=== PATIENT | female | born 1985 | race Caucasian/White ===

== ENCOUNTER 2019-11-30 15:45 | Emergency (ER) | payer OTHER, SELFPAY ==
[2019-11-30 16:43] VITALS: BP 150/86; PULSE 76; RESP 20; TEMP 37.9; O2SAT 100
--- NOTE | 2019-11-30 16:57 | ED.URI ---
HPI - URI/Sore Throat General Chief Complaint: Upper Respiratory Infection Stated Complaint: Fever/chills/Cough Time Seen by Provider: 11/30/19 17:20 Source: patient and RN notes reviewed Mode of arrival: ambulatory Limitations: no limitations History of Present Illness HPI Narrative: 34-year-old female presents with concern for fever, chills, cough, nasal congestion, rhinorrhea that started yesterday. Reports taking several [id number] medications with no relief MD elicited complaint: cough Related Data Allergies Allergy/AdvReac Type Severity Reaction Status Date / Time clarithromycin Allergy Unknown Unverified 04/30/19 11:31 Review of Systems Review of Systems: Narrative: CONSTITUTIONAL: Reports malaise, chills, sweats, or fever. EYES: Denies visual changes, redness, or discharge. ENT: Reports rhinorrhea, congestion, otalgia and sore throat. CARDIOVASCULAR: Denies chest pain, palpitations, or edema. RESPIRATORY: Reports cough. Denies dyspnea. GASTROINTESTINAL: Denies abdominal pain, nausea, vomiting, diarrhea SKIN: Denies rash or itching. MUSCULOSKELETAL: Reports myalgia. NEUROLOGIC: Denies headache. All systems reviewed & are unremarkable except as noted in HPI and below PMFSH Comments At time of signature, agree with nursing past medical, surgical, social and family history. There is no relevant family history pertinent to the presenting complaint Exam Narrative: Exam Narrative: GENERAL: Well-appearing, well-nourished, and in no acute distress. HEAD: Normocephalic EYES: PERRLA, conjunctivae clear ENT: Nares clear, turbinates edematous and erythematous, clear discharge. Mucous membranes moist. TM pearly quinn with dull light reflex bilaterally; no tragal tenderness. Oropharynx not erythematous without lesions. Tonsils not enlarged and without exudate, no drooling, no hoarseness, no trismus. NECK: Supple. No lymphadenopathy CHEST: Clear to auscultation, breath sounds equal. No wheezing, rhonchi, rales, or stridor. No respiratory distress, speaks in full sentences. HEART: Regular rate and rhythm. No murmur heard. Normal peripheral pulses. SKIN: Warm, dry, no rash. NEURO: Alert and oriented x3. PSYCH: Normal mood and affect Course Course Emergency Course: Patient is aware of diagnosis, understands and agrees to treatment plan. Anticipatory guidance given. Patient agrees to follow-up as directed and is aware of reasons to seek care at the emergency department. Portions of this record may have been created with voice recognition software Vital Signs Vital signs: Vital Signs Temperature 100.3 F H 11/30/19 16:43 Pulse Rate 76 11/30/19 16:43 Respiratory Rate 20 11/30/19 16:43 Blood Pressure 150/86 H 11/30/19 16:43 Pulse Oximetry 100 11/30/19 16:43 Temperature 100.3 F H 11/30/19 16:43 Pulse Rate 76 11/30/19 16:43 Respiratory Rate 20 11/30/19 16:43 Blood Pressure 150/86 H 11/30/19 16:43 Pulse Oximetry 100 11/30/19 16:43 Reviewed. Patient has been instructed to follow up with her primary care provider within the next week regarding her elevated blood pressure today. MDM - URI/Sore Throat MDM Narrative Medical decision making narrative: Differential diagnosis considered: Strep pharyngitis, allergic rhinitis, upper respiratory tract infection, sinusitis, rhinosinusitis, nasopharyngitis. viral pharyngitis, otitis media, otitis externa, pneumonia, bronchitis, viral cough syndrome, viral syndrome, and influenza. Exam findings show no acute concerns or changes; patient is non-toxic appearing and is in no distress. Patient is appropriate for outpatient treatment and follow-up. Lab Data Attestation: I reviewed the patient's lab results. Labs: Influenza A Screen Positive Reference Range: Negative Influenza B Screen Negative Reference Range: Negative Critical Care Time Critical Care Time Critical Care Time: No Discharge Plan Discharge Clinical Im
== END 2019-11-30 17:38 | disposition home or self-care (01) ==
PROVIDERS: Emergency Provider Nurse Practitioner
DX: J10.1 Influenza due to other identified influenza virus with other respiratory manifestations (principal)
CPT/HCPCS: 87804; 99213; G0463

== ENCOUNTER 2020-09-14 20:05 | Inpatient (IN) | payer OTHER, SELFPAY ==
[2020-09-14 20:08] VITALS: BP 148/71; PULSE 57; RESP 18; TEMP 36.8; O2SAT 100
[2020-09-14 20:26] LABS: Basophils Absolute Auto 0.1 K/mm3 (0.0-0.1); Basophils Percent Auto 0.6 % (0.2-1.2); Eosinophils Absolute Auto 0.3 K/mm3 (0-0.3); Eosinophils Percent Auto 2.8 % (0-4.4); Hematocrit 36.8 % (37.0-47.0); Hemoglobin 12.6 g/dL (12.0-15.0); Immature Granulocyte Absolute 0.01 K/mm3 (0.00-0.031); Immature Granulocyte Percent A 0.1 % (0-0.5); Lymphocytes Absolute Auto 3.44 K/mm3 (0.9-3.2); Lymphocytes Percent Auto 38.7 % (18.3-44.2); Mean Corpuscular HGB Conc 34.2 g/dl (32-36); Mean Corpuscular Hemoglobin 32.4 pg (26-34); Mean Corpuscular Volume 94.6 fl (80-100); Mean Platelet Volume 11.7 fl (7.4-10.4); Monocytes Absolute Auto 0.7 K/mm3 (0.1-0.6); Monocytes Percent Auto 7.7 % (2.6-8.5); Neutrophils Absolute Auto 4.5 K/mm3 (1.3-6.7); Neutrophils Percent Auto 50.1 % (45.5-73.1); Platelet Count Result 239 k/mm3 (150-375); Red Blood Count 3.89 M/mm3 (4.2-5.4); White Blood Count 8.9 K/mm3 (4.5-10.0)
[2020-09-14 20:38] LABS: Alanine Aminotransferase 50 U/L (4-35); Albumin Level 3.9 g/dL (3.5-5.1); Alkaline Phosphatase 77 U/L (38-126); Anion Gap 8 mmol/L (8-16); Aspartate Amino Transferase 63 U/L (14-36); Bilirubin,Total 0.3 mg/dL (0.2-1.3); Blood Urea Nitrogen 12 mg/dL (7-17); Calcium 8.9 mg/dL (8.4-10.2); Carbon Dioxide 26 mmol/L (22-30); Chloride 106 mmol/L (98-107); Estimated CRCL calculation 76 ml/min; Estimated Glomerular Filt Rate > 60; Glucose 107 mg/dL (65-105); Lipase 183 U/L (23-300); Potassium 3.2 mmol/L (3.4-5.0); Sodium 140 mmol/L (137-145)
[2020-09-14] MEDS: MORPHINE SULFATE (*CRX) 4 MG/ML INJ IV PUSH ×2 (20:45→21:18)
[2020-09-14] MEDS: ONDANSETRON INJ 4 MG/2 ML VIAL IV PUSH (20:46)
[2020-09-14 20:49] VITALS: BP 130/94; PULSE 64; RESP 18; O2SAT 100
--- NOTE | 2020-09-14 20:50 | ED.ABDPAIN ---
HPI - Abdominal Pain General Chief Complaint: Abdominal Pain Stated Complaint: Gallbladder Time Seen by Provider: 09/14/20 20:07 History of Present Illness HPI narrative: Patient is a 34-year-old female who presents ER with right upper quadrant abdominal pain. Sudden onset an hour and a half ago. Has history of gallstones and is scheduled to have her gallbladder removed by Dr. Restrepo on 09/29/2020. No fevers or chills or sweats. No vomiting. Pain is particularly more severe than typical so she came in for evaluation. No improvement with Tylenol. Related Data Home Medications Medication Instructions Recorded Confirmed ibuprofen 200 mg capsule 200 mg PO Q6H PRN 04/09/20 09/14/20 Allergies Allergy/AdvReac Type Severity Reaction Status Date / Time clarithromycin Allergy Unknown Unknown Verified 09/09/20 13:52 Review of Systems Review of Systems: All systems reviewed & are unremarkable except as noted in HPI and below Constitutional: Constitutional: Denies chills, Denies fever(s) and Denies weakness ENT: Denies nasal congestion and Denies sore throat Cardiovascular: Cardiovascular: Denies chest pain and Denies radiating jaw, neck or arm pain Respiratory: Respiratory: Denies cough and Denies dyspnea Gastrointestinal: Gastrointestinal: Reports abdominal pain, Denies diarrhea, Reports nausea and Denies vomiting PMFSH Past Medical History Medical History Aneurysm Kawasaki disease No pertinent past medical history Pyoderma gangrenosum Surgical History Surgical History Bulan teeth extracted Family History Family History Mother Diabetes mellitus Acute myocardial infarction Thrombus Father Diabetes mellitus Hypertension Social History Social History Smoking status: Never smoker Alcohol intake: current Drinks per week: 2 Substance use: never Substance use type: does not use Additional occupation/education comments: Pharmacist Gender identity (if verbalized by the patient): Female Spiritual care concerns: No Exam Narrative: Exam Narrative: GENERAL: Well-appearing, well-nourished, and in no acute distress. HEAD: Normocephalic, atraumatic. CHEST: Clear to auscultation. No respiratory distress. HEART: Regular rate and rhythm. Normal peripheral pulses. ABDOMEN: Soft, moderate tenderness palpation right upper quadrant, nondistended. EXTREMITIES: Normal range of motion. No edema. SKIN: Warm, dry, no rash. NEURO: Alert and oriented x3. PSYCH: Normal mood and affect. Course Course Emergency Course: Patient still with mild pain after 2 doses of morphine. Discussed with general surgery who recommends admission for observation. Patient received Zosyn. Vital Signs Vital signs: Vital Signs Temperature 98.2 F 09/14/20 20:08 Pulse Rate 57 L 09/14/20 20:08 Respiratory Rate 18 09/14/20 20:08 Blood Pressure 148/71 H 09/14/20 20:08 Pulse Oximetry 100 09/14/20 20:08 Temperature 97.2 F L 09/15/20 06:00 Pulse Rate 52 L 09/15/20 06:00 Respiratory Rate 18 09/15/20 06:00 Blood Pressure 104/72 09/15/20 06:00 Pulse Oximetry 100 09/15/20 06:00 MDM - Abdominal Pain Lab Data Result diagrams: 09/14/20 20:20 09/14/20 20:20 Labs: Lab Results 09/14/20 09/14/20 09/14/20 Range/Units 20:20 20:20 20:43 WBC 8.9 (4.5-10.0) K/mm3 RBC 3.89 L (4.2-5.4) M/mm3 Hgb 12.6 (12.0-15.0) g/dL Hct 36.8 L (37.0-47.0) % MCV 94.6 (80-100) fl MCH 32.4 (26-34) pg MCHC 34.2 (32-36) g/dl RDW 12.0 (11.5-14.5) % Plt Count 239 (150-375) k/mm3 MPV 11.7 H (7.4-10.4) fl Immature Gran % (Auto) 0.1 (0-0.5) % Neut % (Auto) 50.1 (45.5-73.1) % Lymph % (Auto) 38.7 (18.3-44.2)
[2020-09-14 20:52] LABS: Add Urine Microscopic? YES; Appearance Urine Clear (Clear); Bilirubin Urine Negative (Negative); Blood Urine Negative (Negative); Color Urine Yellow (Yellow); Glucose Urine UA Negative (Negative); Ketones Urine Negative (Negative); Leukocyte Esterase Ur Negative LEU/UL (Negative); Mucus Urine Moderate /lpf; Nitrate Urine Negative (Negative); Protein Urine 1+ mg/dL (Negative); RBC Urine 0-2 /hpf (0-2); Squamous Epithelial Cell Urine Occasional /hpf (Few); Urobilinogen Urine Negative mg/dL (<2.0); WBC Urine 0-3 /hpf
[2020-09-14 21:29] VITALS: BP 118/62; PULSE 47; RESP 18; O2SAT 100
[2020-09-14 22:12] VITALS: BP 114/57; PULSE 66; RESP 18; O2SAT 100
[2020-09-14 23:19] VITALS: BP 102/69; PULSE 53; RESP 18; O2SAT 99
--- NOTE | 2020-09-14 23:38 | ADMGEN ---
This patient, Nani Gonzales, was admitted to Medical Room 258-. Patient/family oriented to hospital policies and general routines including ID bracelet, bed and alarms, visiting hours, pain management, procedures, bathroom and other care routines, personal items, smoking policy, room service/diet, and visiting hours. Information on how to activate the Rapid Response Team has been discussed. Patient/Family are encouraged to report perceived risks to care and to ask questions if they do not understand what they are told or what they should do.
[2020-09-15] MEDS: SODIUM CHLORIDE 0.9% IV 1,000 ML 125 ML IV CONT ×2 (00:03→08:40)
[2020-09-15 00:04] VITALS: BP 114/59; PULSE 50; RESP 16; TEMP 36.3; O2SAT 100; BMI 33.3
[2020-09-15 06:00] VITALS: BP 104/72; PULSE 52; RESP 18; TEMP 36.2; O2SAT 100
--- NOTE | 2020-09-15 09:50 | PM.IMHP ---
H&P: HPI History of Present Illness Date/Time: 09/15/20 09:50 Chief complaint: ruq abdominal pain, cholelithiasis Narrative: Nani Gonzales is a 34 year old female who was recently seen in the office by Dr. Restrepo for cholelithiasis. She had a right upper quadrant abdominal ultrasound on 09/04/2020 that showed diffuse cholelithiasis with a positive Rudd's sign. After evaluation as an outpatient, she was scheduled for a laparoscopic cholecystectomy by Dr. Restrepo on 09/29/2020. She reportedly has been following a very strict low-fat diet as directed. She has had intermittent abdominal pain even with a low-fat diet since seen in the office, but unchanged until last night. Last night for dinner she ate steamed brown rice and grilled chicken. She then developed a sudden onset of right upper quadrant abdominal pain that was more severe than her typical episodes of pain. The pain radiated to her mid back. She denies any alleviating factors. She then called our on-call exchange due to the unrelenting pain and eventually decided to go to the emergency department for further evaluation. Labs in the ER showed a white blood cell count of 8,900, potassium 3.2, AST 63, ALT 50, total bilirubin and alk-phos normal, and a normal lipase. Our service was consulted by the ED physician and the patient was admitted to our service. She is now being seen on the medical floor. She reports that her abdominal pain improved after 2 doses of the IV morphine. She reports that her abdominal pain prior to admission has been aggravated even by a low-fat diet. She states she has been eating very little at home due to the fear of the recurrent abdominal pain. She denies abdominal pain at this time. Denies fever, chills, or bloating. Reports associated loose stools. No other complaints at this time. Review of Systems Review of Systems: All systems reviewed & are unremarkable except as noted in HPI and below Constitutional: Constitutional: Reports as per HPI, Denies chills, Denies excessive sweating, Denies fatigue, Denies fever(s), Denies headache(s) and Denies weakness Eyes: Eyes: Reports no additional eye complaints, Denies change in vision and Denies eye pain ENT: Reports system reviewed and no additional complaints, except as documented, Denies dysphagia, Denies dizziness, Denies dry mouth, Denies headache(s), Denies hearing loss and Denies mouth pain Cardiovascular: Cardiovascular: Reports no additional cardiovascular complaints, Denies chest pain, Denies pedal edema, Denies radiating jaw, neck or arm pain, Denies dyspnea and Denies dyspnea on exertion Respiratory: Respiratory: Reports no additional respiratory complaints, Denies cough, Denies dyspnea, Denies dyspnea on exertion and Denies wheezing Gastrointestinal: Gastrointestinal: Reports as per HPI, Reports abdominal pain, Denies hematochezia, Denies tenesmus, Denies change in stool character, Denies dysphagia, Denies diarrhea, Reports loose stools, Denies nausea and Denies vomiting Genitourinary: Genitourinary: Reports as per HPI Musculoskeletal: Musculoskeletal: Reports no additional musculoskeletal complaints, Denies abnormal gait, Denies deformity, Denies joint swelling, Denies numbness and Denies tingling Integumentary/Breasts: Skin/Breast: Reports system reviewed and no additional complaints, except as docu, Denies new lesions, Denies rash, Denies wounds and Denies jaundice Neurologic: Reports system reviewed and no additional complaints, except as documented, Denies abnormal gait, Denies dizziness, Denies headache(s), Denies numbness, Denies tingling and Denies weakness Psychiatric: Psychiatric: Reports no additional psychiatric complaints, Denies anxiety and Denies depression Endocrine: Endocrine: Reports no additional endocrine complaints, Denies cold intolerance, Denies excessive sweating, Denies fatigue and Denies heat intolerance PMFSH Past Medical History Medical History (Reviewed 09/15/20 @ 10:41 by
[2020-09-15] MEDS: POTASSIUM CHLORIDE 20 MEQ PACKET (FOR LIQUID) 40 MEQ PO (11:16)
[2020-09-15 12:39] LABS: Alanine Aminotransferase 86 U/L (4-35); Albumin Level 3.2 g/dL (3.5-5.1); Alkaline Phosphatase 63 U/L (38-126); Aspartate Amino Transferase 73 U/L (14-36); Bilirubin,Total 0.4 mg/dL (0.2-1.3)
[2020-09-15 14:00] VITALS: BP 107/63; PULSE 76; RESP 16; TEMP 36.7; O2SAT 100
[2020-09-15] MEDS: SODIUM CHLORIDE 0.9% IV 1,000 ML 100 ML IV CONT (17:54)
[2020-09-15] MEDS: MORPHINE SULFATE (*CRX) 2 MG/ML INJ IV PUSH (21:14)
[2020-09-15 22:00] VITALS: BP 136/78; PULSE 60; RESP 21; TEMP 37.1; O2SAT 100
[2020-09-16] VITALS (14 sets, daily range): BP systolic 110–136; BP diastolic 54–76; PULSE 39–67; RESP 11–21; TEMP 36.1–37.1; O2SAT 97–100
[2020-09-16 05:44] LABS: Basophils Percent Auto 0.7 % (0.2-1.2); Eosinophils Absolute Auto 0.3 K/mm3 (0-0.3); Eosinophils Percent Auto 4.3 % (0-4.4); Hematocrit 31.2 % (37.0-47.0); Hemoglobin 10.2 g/dL (12.0-15.0); Immature Granulocyte Absolute 0.02 K/mm3 (0.00-0.031); Immature Granulocyte Percent A 0.3 % (0-0.5); Lymphocytes Absolute Auto 2.68 K/mm3 (0.9-3.2); Lymphocytes Percent Auto 44.4 % (18.3-44.2); Mean Corpuscular HGB Conc 32.7 g/dl (32-36); Mean Corpuscular Hemoglobin 31.9 pg (26-34); Mean Corpuscular Volume 97.5 fl (80-100); Mean Platelet Volume 12.2 fl (7.4-10.4); Monocytes Absolute Auto 0.5 K/mm3 (0.1-0.6); Monocytes Percent Auto 8.1 % (2.6-8.5); Neutrophils Absolute Auto 2.6 K/mm3 (1.3-6.7); Neutrophils Percent Auto 42.2 % (45.5-73.1); Platelet Count Result 178 k/mm3 (150-375); Red Cell Distribution Width 12.5 % (11.5-14.5)
--- NOTE | 2020-09-16 06:08 | WPDANESEPP ---
Anes - Eval Pre Procedure Procedure: Operation Date: 09/16/20 15:30 Proposed Procedures p Laparoscopic Cholecystectomy With IntraOperative Cholangiogram - Kameron Restrepo MD Date/Time: 09/16/20 06:08 Pre Op Diagnosis: ruq abdominal pain, cholelithiasis Patient Data Age: 34 Gender: F Height: 5 ft 2 in Weight: 82.5 kg Last Vital Signs Temp 98.7 F 09/15/20 22:00 Pulse 60 09/15/20 22:00 Resp 21 H 09/15/20 22:00 BP 136/78 09/15/20 22:00 Pulse Ox 100 09/15/20 22:00 Allergies Allergy/AdvReac Type Severity Reaction Status Date / Time clarithromycin Allergy Unknown Unknown Verified 09/09/20 13:52 Home Medications Medication Instructions Recorded Confirmed Type ibuprofen 200 mg capsule 200 mg PO Q6H PRN 04/09/20 09/14/20 History Laboratory Tests 09/15/20 09/16/20 09/16/20 12:11 05:21 05:21 WBC 6.0 K/mm3 K/mm3 (4.5-10.0) RBC 3.20 M/mm3 L M/mm3 (4.2-5.4) Hgb 10.2 g/dL L g/dL (12.0-15.0) Hct 31.2 % L % (37.0-47.0) MCV 97.5 fl fl (80-100) MCH 31.9 pg pg (26-34) MCHC 32.7 g/dl g/dl (32-36) RDW 12.5 % % (11.5-14.5) Plt Count 178 k/mm3 k/mm3 (150-375) MPV 12.2 fl H fl (7.4-10.4) Immature Gran % (Auto) 0.3 % % (0-0.5) Neut % (Auto) 42.2 % L % (45.5-73.1) Lymph % (Auto) 44.4 % H % (18.3-44.2) [place] % (Auto) 8.1 % % (2.6-8.5) Eos % (Auto) 4.3 % % (0-4.4) Baso % (Auto) 0.7 % % (0.2-1.2) Lymph # (Auto) 2.68 K/mm3 K/mm3 (0.9-3.2) [place] # (Auto) 0.5 K/mm3 K/mm3 (0.1-0.6) Eos # (Auto) 0.3 K/mm3 K/mm3 (0-0.3) Baso # (Auto) 0.0 K/mm3 K/mm3 (0.0-0.1) Abs Immat Gran (auto) 0.02 K/mm3 K/mm3 (0.00-0.031) Absolute Neuts (auto) 2.6 K/mm3 K/mm3 (1.3-6.7) Absolute Nucleated RBC 0.0 K/mm3 K/mm3 (0.0-0.012) Nucleated RBC % 0.0 % % (0.0-0.2) Sodium Pending Potassium Pending Chloride Pending Carbon Dioxide Pending Anion Gap Pending BUN Pending Creatinine Pending Estim Creat Clear Calc Pending Estimated GFR Pending Glucose Pending Calcium Pending Magnesium Pending Total Bilirubin 0.4 mg/dL mg/dL Pending (0.2-1.3) Direct Bilirubin 0.0 mg/dL mg/dL (0-0.3) AST 73 U/L H U/L Pending (14-36) ALT 86 U/L H U/L Pending (4-35) Alkaline Phosphatase 63 U/L U/L Pending (38-126) Total Protein 6.0 g/dL L g/dL Pending (6.3-8.2) Albumin 3.2 g/dL L g/dL Pending (3.5-5.1) Lipase Pending Patient hx anesthesia problems: none Family hx anesthesia problems: none PMFSH Past Medical History Medical History Aneurysm Biliary colic BMI 33.0-33.9,adult Intractable abdominal pain Kawasaki disease Pyoderma gangrenosum Surgical History Surgical History Novi teeth extracted Family History Family History Mother Diabetes mellitus Acute myocardial infarction Thrombus Gallbladder disease Father Diabetes mellitus Hypertension Gallbladder disease Grandparent Gallbladder disease Grandparent Gallbladder disease Social History Social History Smoking status: Never smoker Alcohol intake: current Drinks per week: 2 Substance use: never Substance use type: does not use Additional occupation/education comments: Pharmacist Gender identity (if verbalized by the patient): Female Spiritual care concerns: No Exam Day of Procedure 09/16/20 06:08 Patient weight: overweight
[2020-09-16] MEDS: SODIUM CHLORIDE 0.9% IV 1,000 ML 100 ML IV CONT ×2 (06:10→22:19)
[2020-09-16 06:15] LABS: Alanine Aminotransferase 93 U/L (4-35); Albumin Level 2.7 g/dL (3.5-5.1); Alkaline Phosphatase 64 U/L (38-126); Anion Gap 3 mmol/L (8-16); Aspartate Amino Transferase 67 U/L (14-36); Bilirubin,Total 0.4 mg/dL (0.2-1.3); Blood Urea Nitrogen 5 mg/dL (7-17); Calcium 7.8 mg/dL (8.4-10.2); Carbon Dioxide 23 mmol/L (22-30); Chloride 115 mmol/L (98-107); Estimated CRCL calculation 84 ml/min; Estimated Glomerular Filt Rate > 60; Glucose 82 mg/dL (65-105); Lipase 82 U/L (23-300); Magnesium 1.9 mg/dL (1.6-2.3); Potassium 3.7 mmol/L (3.4-5.0); Sodium 141 mmol/L (137-145)
[2020-09-16] MEDS: ACETAMINOPHEN 500 MG TABLET 1000 MG PO (08:16)
--- NOTE | 2020-09-16 11:48 | WPDHPUPDATE1 ---
History and Physical Update Update Date/Time: 09/16/20 11:48 History and Physical has been reviewed, including an updated exam of the patient. There are NO changes in the patient's condition. Risks, benefits, and alternatives have been discussed and questions answered. Patient agrees to proceed with procedure.
[2020-09-16] MEDS: CHLORHEXIDINE GLUCONATE 4% SOL 120 ML BTL 1 APPLIC TOPICAL (12:34)
[2020-09-16] MEDS: LACTATED RINGERS 1,000 ML 30 ML IV CONT ×2 (14:30→17:54)
--- NOTE | 2020-09-16 14:32 | P.PNAN_ITS ---
Anes - Eval Final PreProcedure Day of Procedure 09/16/20 14:32 Patient weight: obese Heart: regular rate and rhythm Lungs: clear to auscultation Airway: Mallampati scale class II Neurological: alert and oriented Last oral intake: >/= 8 hours ASA classification: II Emergent: no Anesthetic plan: proceed Anesthesia type and monitoring: general ETT and standard monitoring Informed Consent: The patient's anesthetic plan and its attendant risks and rosalee efits were discussed with the patient/family/POA. Questions were solicited and answers provided to the satisfaction of the patient/family/POA.
[2020-09-16] MEDS: BUPIVACAINE/EPINEPHRINE 0.25% 10 ML VIAL 30 ML INFILTRATE (16:31)
--- NOTE | 2020-09-16 17:58 | PM.PROC ---
Procedure Note - Detailed Date of procedure: 09/16/20 Pre-op diagnosis: ruq abdominal pain, cholelithiasis Chronic Cholecystitis with Cholelithiasis Post-op diagnosis: other (Acute on chronic cholecystitis with cholelithiasis) Procedure performed: Laparoscopic Cholecystectomy Description of procedure: Patient was seen preoperatively in the holding area and risks, benefits and alternatives confirmed. Patient was taken to the operating room and general anesthesia was induced. A time out was then preformed with the surgery team confirming patient and site of surgery. The abdomen was prepped and draped in the usual sterile fashion. Incision was made just below the umbilicus with an 11 blade knife. I placed 2 stay sutures of O- Vicryl on either side of the mid-line fascia beneath the umbilicus and was then able to slide in the Max cannula through the fascial defect into the peritoneum. First under low flow and then under high flow the abdomen was insufflated with carbon dioxide never exceeding a pressure of 14. Three 5 mm trocars were then introduced under direct vision. The following trocars were introduced under direct vision: a 5 mm in the epigastrium and two 5 mm trocars along the right costal margin laterally in the subcostal area. There were minor omental adhesions on the very lower en of the gallbladder These were taken down with blunt and sharp dissection using some Bovie cautery for hemostasis. We were able to dissect this completely away from the neck of the gallbladder. I then carefully used the L-shaped cautery and the [place] dissector to dissect out the triangle of [place]. I then was able to dissect out both the cystic duct and cystic artery and identify a window of safety. There did appear to be a posterior branch of the cystic artery going up onto the back of the gallbladder also. The gall bladder was grasped and the cystic duct and artery were dissected free and clipped with an 5 mm endo-clip stick feeder. The cystic duct and artery were clipped with use of 2 clips on the patient's side 1 on the gallbladder side utilizing a 5 mm endoclip-stick feeder. One clip was applied on the patient's side of the posterior branch of the cystic artery. The cystic duct was then transected. The cystic artery and posterior branch of this artery was also transected at this point. The gall bladder was removed using electrocautery and then removed from the abdomen using a large 10 mm grasper via the umbilical incision. In order to get the large stone out of the abdomen within the gallbladder I did make the fascial defect slightly larger with Sequeira scissors. As we were removing the gallbladder a small hole was created in the gallbladder and some bile spilled out into the umbilical incision. This was carefully irrigated away and a picture was taken of the gallbladder and the stones within it. The trocars were removed visualizing hemostasis and the remaining gas evacuated. The large trocar site at the umbilicus was closed with use of the 2 stay sutures of 0 Vicryl mentioned above and also two figure of 8 O-Vicryl sutures. The 2 stay sutures mentioned above on either side of the fascia were also tied together to help approximate this midline fascia. Further local anesthetic was placed into each incision for postop pain control. The skin incisions were closed with subcuticular suture of 4-0 Monocryl. Surgical glue then was applied to all the incisions. Patient tolerated the procedure well was taken to the recovery room in good condition. Implants: none Anesthesia: LORETTA Surgeon: Kameron Restrepo MD Veterinary Assistant Technician: Teodora BREWER, OR behavioral health assistant Estimated blood loss (mL): 40 Drains: No Packing: No Pathology: yes (Gallbladder) Complications: No immediate complications Condition: stable Disposition: PACU Findings: Patient's gallbladder was grayish with a thick wall and some pericholecystic edema was noted as we excised it.
[2020-09-16] MEDS: fentaNYL CITRATE INJ (*CRX) 100 MCG/2 ML VIAL 25 MCG IV PUSH ×4 (18:11→19:13)
[2020-09-16] MEDS: ONDANSETRON INJ 4 MG/2 ML VIAL IV PUSH (18:30)
[2020-09-16] MEDS: SCOPOLAMINE 1.5 MG PATCH TRANSDERM (18:47)
[2020-09-16] MEDS: HALOPERIDOL LACTATE 5 MG/ML VIAL 1 MG IV PUSH (18:57)
--- NOTE | 2020-09-16 19:43 | PC.NURSE ---
RECIVED PT FROM OR PER BED. A&O X3, VOICES NO C/O AT PRESENT
[2020-09-16] MEDS: MORPHINE SULFATE (*CRX) 2 MG/ML INJ IV PUSH (21:00)
[2020-09-17 01:20] VITALS: BP 108/65; PULSE 50; RESP 20; TEMP 36.1; O2SAT 99
[2020-09-17] MEDS: HYDROcodone/acetaminophen (*CRX) 7.5-325 MG TABLET 1 TAB PO ×2 (01:32→07:54)
[2020-09-17 05:20] VITALS: BP 115/58; PULSE 48; RESP 21; TEMP 36.3; O2SAT 100
[2020-09-17 05:49] LABS: Hematocrit 34.7 % (37.0-47.0); Hemoglobin 11.6 g/dL (12.0-15.0); Mean Corpuscular HGB Conc 33.4 g/dl (32-36); Mean Corpuscular Volume 95.9 fl (80-100); Platelet Count Result 228 k/mm3 (150-375); Red Blood Count 3.62 M/mm3 (4.2-5.4); Red Cell Distribution Width 12.1 % (11.5-14.5); White Blood Count 9.3 K/mm3 (4.5-10.0)
[2020-09-17 06:00] VITALS: BP 115/58; PULSE 48; RESP 21; TEMP 36.3; O2SAT 100
[2020-09-17 06:05] LABS: Alanine Aminotransferase 208 U/L (4-35); Albumin Level 3.4 g/dL (3.5-5.1); Alkaline Phosphatase 99 U/L (38-126); Anion Gap 7 mmol/L (8-16); Aspartate Amino Transferase 144 U/L (14-36); Bilirubin,Total 0.5 mg/dL (0.2-1.3); Blood Urea Nitrogen 4 mg/dL (7-17); Calcium 8.7 mg/dL (8.4-10.2); Carbon Dioxide 25 mmol/L (22-30); Chloride 109 mmol/L (98-107); Estimated CRCL calculation 95 ml/min; Estimated Glomerular Filt Rate > 60; Glucose 112 mg/dL (65-105); Sodium 141 mmol/L (137-145)
--- NOTE | 2020-09-17 09:58 | PM.DS ---
DS: Admitting Diagnosis Admitting Diagnosis Admitting Diagnosis: Chronic calculous cholecystitis Biliary colic Abnormal menstruation BMI of 33 DS: Discharge Diagnosis Discharge Diagnosis (1) Acute on chronic cholecystitis: Code(s): K81.2 - Acute cholecystitis with chronic cholecystitis Status: Acute Assessment and Plan: 09/16/[address] Restrepo (2) Abnormal menstrual periods: Code(s): N92.6 - Irregular menstruation, unspecified Status: Acute (3) BMI 33.0-33.9,adult: Code(s): Z68.33 - Body mass index [BMI] 33.0-33.9, adult Status: Acute DS: Summary Hospital Course Reason for hospitalization: Nani Gonzales is a 34 year old female who was recently seen in the office by Dr. Restrepo for cholelithiasis. She had a right upper quadrant abdominal ultrasound on 09/04/2020 that showed diffuse cholelithiasis with a positive Rudd's sign. After evaluation as an outpatient, she was scheduled for a laparoscopic cholecystectomy by Dr. Restrepo on 09/29/2020. She reportedly has been following a very strict low-fat diet as directed. She has had intermittent abdominal pain even with a low-fat diet since seen in the office. On 09/14/2020 she had a sudden onset of right upper quadrant abdominal pain that was more severe than her typical episodes of pain. The pain radiated to her mid back. She was then evaluated in the emergency department. Labs in the ER were unremarkable. The patient was admitted for further evaluation due to intractable abdominal pain with known cholelithiasis. Hospital Course: The patient was admitted to our service and started on IV antibiotics, IV fluids, IV analgesics and made NPO. Her pain did improve with IV morphine and her pain eventually subsided. We discussed treatment options at that point of either trying to advance on a diet and go home to still plan for scheduled surgery, versus proceeding with surgery on this admission. The patient was not tolerating even a low-fat diet at home and wished to proceed with surgery on this admission. She underwent laparoscopic cholecystectomy by Dr. Restrepo on 09/16/2020. There are findings of acute on chronic cholecystitis with cholelithiasis. No immediate complications. She was transferred to the medical floor and continued IV antibiotics through the night. Initially had some mild nausea but no vomiting. She was slowly advanced on a diet and is now tolerating this well today. Denies any nausea or vomiting this morning. She reports minimal bloating is improved with flatus. Denies chest pain, shortness of breath, leg pain or swelling. Reports abdominal soreness at the incision sites specifically worse with getting up for bending. No fevers or chills. No other complaints at this time. Repeat labs this morning were unremarkable. After discussing with Dr. Restrepo, the patient is okay for discharge at this point. I discussed all discharge care instructions with her. We will not continue antibiotics on discharge. Will plan to follow up in 2 weeks. Status at Discharge Functional status at discharge: independent ambulation Overall status at discharge: patient is progressing back to baseline Time Spent with Patient Time attestation: Total time spent providing and/or coordinating discharge services: Time spent: Greater than 30 minutes Exam Const: General: comfortable, no acute distress, alert and awake Orientation/consciousness: patient oriented x3 Resp: Effort & Inspection: normal respiratory effort and able to speak in complete sentences Auscultation: clear to auscultation bilaterally Cardio: Rate: regular rate Rhythm: regular rhythm GI: Inspection: non-distended and incision (Incisions clean and dry with glue intact. Min. ecchymosis at umbilical inc.) GI Palp: Yes Soft to palpation, Yes Tenderness to palpation present (GI) (incisional), No Guarding due to palpation present (GI), No Hernia present and No Rebound te
== END 2020-09-17 10:30 | disposition home or self-care (01) | DRG 418 ==
LOC: ANHED 21:56 → ANH2MED 09-15 00:14
PROVIDERS: Admitting Provider Surgery; Emergency Provider Emergency Medicine; PCP Family Medicine Sports Medicine; Visit Provider Nurse Practitioner Family
PROC: 0FT44ZZ Resection of Gallbladder, Percutaneous Endoscopic Approach (ICD-10-PCS; CPT 47562; principal; 2020-09-16 15:30)
DX: K80.66 Calculus of gallbladder and bile duct with acute and chronic cholecystitis without obstruction (principal); M30.3 Mucocutaneous lymph node syndrome [Kawasaki]; N92.6 Irregular menstruation, unspecified; E87.6 Hypokalemia; E66.9 Obesity, unspecified; Z68.33 Body mass index [BMI] 33.0-33.9, adult
CPT/HCPCS: 36415; 80053; 80076; 81001; 81025; 83690; 83735; 85025; 85027; 86850; 86900; 86901; 88304; 96365; 96375; 96376; 99285; A9270; J0131; J0330; J1100; J1630; J2250; J2270; J2405; J2543; J2704; J2710; J3010; J7030; J7120

== ENCOUNTER 2020-09-23 10:25 | Emergency (ER) | payer OTHER, SELFPAY ==
--- NOTE | ~2020-09-23 | NM_ITS ---
EXAMINATION: NM hepatobiliary wo pharm DATE: 09/23/2020 15:23 INDICATION: Bile leak after cholecystectomy. COMPARISON: None. TECHNIQUE: 4.9 mCi Tc-99m mebrofenin (Choletec) was administered intravenously. Scintigraphic images of the abdomen were obtained for one hour. FINDINGS: There is normal clearance of radiotracer from the blood pool. There is homogeneous tracer u ptake by the liver. Activity progresses to the bowel. IMPRESSION: 1. No bile leak. Reviewed, dictated and finalized at location A. NG MACHINE ATTENDANT IMPRESSION: 1. No bile leak.
--- NOTE | ~2020-09-23 | XR_ITS ---
EXAMINATION: XR abdomen/kub 1V DATE: 09/23/2020 12:20 INDICATION: Right upper quadrant abdominal pain. TECHNIQUE: A supine view of the abdomen on 2 radiographs was obtained. COMPARISON: None. FINDINGS: There are no dilated loops of bowel. There is a moderate volume of stool in the colon. Surg ical clips in the right upper quadrant are likely from cholecystectomy. There is a 3 mm calcification in right pelvis. There is a 3 mm calcification in left pelvis. IMPRESSION: 1. Normal bowel gas pattern. 2. Small calcifications in the pelvis, which may be phleboliths. Distal ureteral stone(s) cannot be e xcluded. Reviewed, dictated and finalized at location A. RCANE PLANTER IMPRESSION: 1. Normal bowel gas pattern. 2. Small calcifications in the pelvis, which may be phleboliths. Distal uretera l stone(s) cannot be excluded.
[2020-09-23 10:33] VITALS: BP 135/88; PULSE 60; RESP 19; TEMP 36.1; O2SAT 100
[2020-09-23 10:41] LABS: Basophils Absolute Auto 0.1 K/mm3 (0.0-0.1); Basophils Percent Auto 0.6 % (0.2-1.2); Eosinophils Absolute Auto 0.3 K/mm3 (0-0.3); Eosinophils Percent Auto 3.5 % (0-4.4); Hematocrit 42.9 % (37.0-47.0); Immature Granulocyte Absolute 0.03 K/mm3 (0.00-0.031); Immature Granulocyte Percent A 0.3 % (0-0.5); Lymphocytes Absolute Auto 3.09 K/mm3 (0.9-3.2); Lymphocytes Percent Auto 33.2 % (18.3-44.2); Mean Corpuscular HGB Conc 32.6 g/dl (32-36); Mean Corpuscular Hemoglobin 31.7 pg (26-34); Mean Corpuscular Volume 97.3 fl (80-100); Mean Platelet Volume 11.2 fl (7.4-10.4); Monocytes Absolute Auto 0.6 K/mm3 (0.1-0.6); Monocytes Percent Auto 6.1 % (2.6-8.5); Neutrophils Absolute Auto 5.2 K/mm3 (1.3-6.7); Neutrophils Percent Auto 56.3 % (45.5-73.1); Platelet Count Result 309 k/mm3 (150-375); Red Blood Count 4.41 M/mm3 (4.2-5.4); Red Cell Distribution Width 12.3 % (11.5-14.5); White Blood Count 9.3 K/mm3 (4.5-10.0)
--- NOTE | 2020-09-23 10:42 | ED.ABDPAIN ---
HPI - Abdominal Pain General Chief Complaint: Abdominal Pain Stated Complaint: R Upper Abd Pain Time Seen by Provider: 09/23/20 10:28 Source: patient Mode of arrival: ambulatory Limitations: no limitations History of Present Illness HPI narrative: Patient with history of cholecystectomy presents with chief complaint of right upper quadrant pain that began this morning onset was sudden and feels tight bandlike. Patient states that she had her cholecystectomy on 09-16-[address] Restrepo and the procedure went without complication. Patient states she has not needed to take any [place] for pain control since Tuesday and have been doing fine with just ibuprofen. Patient states she has been urinating and having normal bowel movements without blood or mucus. Patient denies any fever, chills, vomiting. Patient reports nausea in a bandlike tight feeling in her right upper quadrant that radiates to her right upper back. She reports nausea due to the pain. Patient states that she called Dr. Restrepo's office but they did not answer so she presented to the emergency department and she is concerned something is wrong. Patient states she has been following the improved diet, ambulating and doing well into her symptoms began suddenly this morning. Patient denies chest pain or shortness of breath. Patient denies chance of last menstrual cycle was 09-14-2020. Related Data Home Medications Medication Instructions Recorded Confirmed ibuprofen 200 mg capsule 200 mg PO Q6H PRN 04/09/20 09/14/20 Allergies Allergy/AdvReac Type Severity Reaction Status Date / Time clarithromycin Allergy Unknown Unknown Verified 09/23/20 10:38 Review of Systems Review of Systems: Narrative: CONSTITUTIONAL: Denies fever, chills, or sweats. EYES: Denies visual changes, redness, or discharge. ENT: Denies rhinorrhea, congestion, sore throat, or otalgia. CARDIOVASCULAR: Denies chest pain, palpitations, or edema. RESPIRATORY: Denies cough or dyspnea. GASTROINTESTINAL: Reports right upper quadrant abdominal pain, nausea, denies vomiting, or diarrhea. GENITOURINARY: Denies dysuria or hematuria. SKIN: Denies rash or itching. MUSCULOSKELETAL: Denies back pain, joint pain, or myalgia. NEUROLOGIC: Denies headache, numbness, dizziness, or weakness. PSYCHIATRIC: Denies anxiety or depression. [facility] Past Medical History Medical History Aneurysm Biliary colic BMI 33.0-33.9,adult Intractable abdominal pain Kawasaki disease Pyoderma gangrenosum Surgical History Surgical History [place] teeth extracted Family History Family History Mother Diabetes mellitus Acute myocardial infarction Thrombus Gallbladder disease Father Diabetes mellitus Hypertension Gallbladder disease Grandparent Gallbladder disease Grandparent Gallbladder disease Social History Social History Smoking status: Never smoker Alcohol intake: current Drinks per week: 2 Substance use: never Substance use type: does not use Additional occupation/education comments: Pharmacist Gender identity (if verbalized by the patient): Female Spiritual care concerns: No Exam Narrative: Exam Narrative: GENERAL: Well-appearing, well-nourished, appears uncomfortable. HEAD: Normocephalic, atraumatic. EYES: PERRLA and EOMI. NECK: Supple. No adenopathy or masses. CHEST: Clear to auscultation. No respiratory distress. No wheezes rales or rhonchi HEART: Regular rate and rhythm. No murmur heard. Normal peripheral pulses. ABDOMEN: Well-healing laparoscopic abdominal incisions to patient's abdomen. Soft, very tender even with light touch to right upper quadrant-Rudd's positive, nondistended, normal active bowel sounds. EXTREMITIES: Normal range of motion. No edema. S
[2020-09-23 10:55] LABS: Alanine Aminotransferase 103 U/L (4-35); Albumin Level 4.2 g/dL (3.5-5.1); Alkaline Phosphatase 136 U/L (38-126); Anion Gap 10 mmol/L (8-16); Aspartate Amino Transferase 63 U/L (14-36); Bilirubin,Total 0.5 mg/dL (0.2-1.3); Blood Urea Nitrogen 7 mg/dL (7-17); Calcium 9.1 mg/dL (8.4-10.2); Carbon Dioxide 24 mmol/L (22-30); Chloride 106 mmol/L (98-107); Estimated CRCL calculation 95 ml/min; Estimated Glomerular Filt Rate > 60; Glucose 122 mg/dL (65-105); Lipase 185 U/L (23-300); Potassium 3.7 mmol/L (3.4-5.0); Sodium 140 mmol/L (137-145)
[2020-09-23] MEDS: ONDANSETRON INJ 4 MG/2 ML VIAL IV PUSH (10:59)
[2020-09-23] MEDS: MORPHINE SULFATE (*CRX) 2 MG/ML INJ IV PUSH (10:59)
--- NOTE | 2020-09-23 11:00 | PC.NURSE ---
Pt unable to provide u/a at this time, states will try again in a little bit.
--- NOTE | 2020-09-23 11:50 | PC.NURSE ---
urine collected. bedside preg test done and documented. patient aware. needed due to KUB.
[2020-09-23 12:11] LABS: Add Urine Microscopic? YES; Appearance Urine Clear (Clear); Bacteria Urine Trace /hpf; Bilirubin Urine Negative (Negative); Blood Urine Negative (Negative); Color Urine Yellow (Yellow); Glucose Urine UA Negative (Negative); Ketones Urine Negative (Negative); Leukocyte Esterase Ur 2+ LEU/UL (Negative); Mucus Urine Rare /lpf; Nitrate Urine Negative (Negative); Protein Urine Negative (Negative); RBC Urine 0-2 /hpf (0-2); Specific Grav Ur 1.015 (1.001-1.035); Squamous Epithelial Cell Urine Few /hpf (Few); Urobilinogen Urine Negative mg/dL (<2.0)
[2020-09-23 14:25] VITALS: BP 132/71; PULSE 55; RESP 18; O2SAT 99
--- NOTE | 2020-09-23 15:26 | PM.IMHP ---
H&P: HPI History of Present Illness Date/Time: 09/23/20 15:26 Chief Complaint: abd pain Narrative: Nani Gonzales is a 34 year old female s/p laparoscopic cholecystectomy for cholecystitis. Pt reports she has been doing well until this am when she awoke c severe upper abd pain radiating to her back. Pt also c bloating and nausea. Review of Systems Constitutional: Constitutional: Denies anorexia, Denies chills, Denies fatigue, Denies fever(s), Denies headache(s), Denies lethargy, Denies malaise, Reports poor appetite, Denies weakness, Denies weight gain and Denies weight loss Eyes: Eyes: Reports no additional eye complaints ENT: Reports system reviewed and no additional complaints, except as documented Cardiovascular: Cardiovascular: Reports no additional cardiovascular complaints Respiratory: Respiratory: Reports no additional respiratory complaints Gastrointestinal: Gastrointestinal: Reports abdominal pain, Reports bloating, Denies diarrhea, Reports nausea and Denies vomiting Genitourinary: Genitourinary: Reports no additional female genitourinary complaints Musculoskeletal: Musculoskeletal: Reports no additional musculoskeletal complaints Integumentary/Breasts: Skin/Breast: Reports system reviewed and no additional complaints, except as docu Neurologic: Reports system reviewed and no additional complaints, except as documented Psychiatric: Psychiatric: Reports no additional psychiatric complaints Endocrine: Endocrine: Reports no additional endocrine complaints Hematologic/Lymphatic: Hematologic/Lymphatic: Reports no additional hematologic/lymphatic complaints Allergic/Immunologic: Allergic/Immunologic: Reports no additional allergic/immunologic complaints PMFSH Past Medical History Medical History Aneurysm Biliary colic BMI 33.0-33.9,adult Intractable abdominal pain Kawasaki disease Pyoderma gangrenosum Surgical History Surgical History [place] teeth extracted Family History Family History Mother Diabetes mellitus Acute myocardial infarction Thrombus Gallbladder disease Father Diabetes mellitus Hypertension Gallbladder disease Grandparent Gallbladder disease Grandparent Gallbladder disease Social History Social History Smoking status: Never smoker Alcohol intake: current Drinks per week: 2 Substance use: never Substance use type: does not use Additional occupation/education comments: Pharmacist Gender identity (if verbalized by the patient): Female Spiritual care concerns: No Meds Home Medications and Allergies Home Medications Medication Instructions Recorded Confirmed Type ibuprofen 200 mg capsule 200 mg PO Q6H PRN 04/09/20 09/14/20 History hydrocodone-acetaminophen 1 tablet PO Q6H PRN #10 tablet 09/17/20 Rx Allergies Allergy/AdvReac Type Severity Reaction Status Date / Time clarithromycin Allergy Unknown Unknown Verified 09/23/20 10:38 Vital Signs Vital Signs - 24 hr 09/23/20 10:33 09/23/20 14:25 Temperature 36.1 C L Pulse Rate 60 55 L Respiratory Rate 19 18 Blood Pressure 135/88 132/71 Pulse Oximetry 100 99 Exam Const: General: cooperative, comfortable and no acute distress Nutritional Appearance: average body habitus Orientation/consciousness: patient oriented x3 HENMT: Head: normal to inspection, normocephalic and atraumatic Ears: hearing grossly normal bilaterally General nose exam: Normal external nose present Mouth: Yes moist mucous membranes Eyes: General: appearance normal, both eyes and all related structures Pupils: Equal, round and reactive pupils present EOM: EOMs intact bilaterally Neck: Neck: normal visual inspection, full ROM and no lymphadenopathy Chest: Chest palpation & inspection: normal i
[2020-09-23 17:08] VITALS: BP 107/57; PULSE 55; RESP 18; O2SAT 100
== END 2020-09-23 17:09 | disposition home or self-care (01) ==
PROVIDERS: Physician Assistant; Emergency Provider Emergency Medicine; PCP Family Medicine Sports Medicine
DX: R10.10 Upper abdominal pain, unspecified (principal); G89.18 Other acute postprocedural pain; M30.3 Mucocutaneous lymph node syndrome [Kawasaki]
CPT/HCPCS: 36415; 74018; 78226; 80053; 81001; 81025; 83690; 85025; 96374; 96375; 99284; A9537; J2270; J2405

== ENCOUNTER 2020-09-29 13:45 | Outpatient (CLI) | payer OTHER, SELFPAY ==
--- NOTE | ~2020-09-29 | MR_ITS ---
EXAMINATION: MR MRCP wo/w con/w 3D wo ind DATE: 09/29/2020 12:56 INDICATION: Right upper quadrant abdominal pain. TECHNIQUE: Magnetic resonance imaging (MRI) of the abdomen was performed without and with 15 mL Multi ralph intravenous contrast. Sequences included coronal T2-weighted SS-FSE, coronal T2-weighted FS SS- FSE, coronal T2-weighted FS FIESTA, axial T2-weighted FS FIESTA, axial T2-weighted FIESTA, sagittal T 2-weighted SS-FSE, axial T1-weighted dual-echo FSPGR, axial T2-weighted SS-FSE, axial T1-weighted LAV A, axial T2-weighted STIR FSE. Thick-slab T2-weighted FRFSE-XL images were obtained for magnetic reso nance cholangiopancreatography (MRCP). Rotating maximum intensity projection 3-D reconstructions of t he volumetric data were created by the technologist. Postcontrast sequences included a time course of axial T1-weighted LAVA. COMPARISON: None. FINDINGS: ABDOMEN MRI: Tiny bilateral pleural effusions. Heart size is normal. No pericardial effusion. Status post cholecys tectomy with small focus of metallic susceptibility artifact secondary to cholecystectomy clips at th e gallbladder fossa. Liver, spleen, pancreas, bilateral adrenal glands and kidneys are normal. Visual ized portions of the bowels are unremarkable. Mild enhancement along a likely trocar access site at t he umbilicus. No pathologically enlarged abdominal lymphadenopathy. Visualized portion of the distend ed bladder appears unremarkable. Bilateral ovarian cysts/follicles including 2.2 cm dominant follicle at the left ovary. ABDOMEN MRCP: Normal caliber common bile duct which measures up to 5-6 mm in maximal diameter. There are at least 3 small low signal intensity filling defects within the distal common bile duct, the largest and most distal measuring 4 mm in maximal diameter consistent with currently nonobstructing choledocholithiasi s. Intrahepatic biliary tree is normal. No pancreatic ductal dilation. IMPRESSION: 1. Choledocholithiasis with no intra or extrahepatic biliary ductal dilation. Reviewed, dictated and finalized at location A. CAMP ATTENDANT
[2020-09-29 14:21] LABS: Basophils Absolute Auto 0.1 K/mm3 (0.0-0.1); Basophils Percent Auto 0.7 % (0.2-1.2); Eosinophils Absolute Auto 0.3 K/mm3 (0-0.3); Eosinophils Percent Auto 3.4 % (0-4.4); Hematocrit 40.5 % (37.0-47.0); Hemoglobin 13.1 g/dL (12.0-15.0); Immature Granulocyte Absolute 0.02 K/mm3 (0.00-0.031); Immature Granulocyte Percent A 0.3 % (0-0.5); Lymphocytes Absolute Auto 2.24 K/mm3 (0.9-3.2); Lymphocytes Percent Auto 29.6 % (18.3-44.2); Mean Corpuscular HGB Conc 32.3 g/dl (32-36); Mean Corpuscular Hemoglobin 31.8 pg (26-34); Mean Corpuscular Volume 98.3 fl (80-100); Mean Platelet Volume 11.8 fl (7.4-10.4); Monocytes Absolute Auto 0.4 K/mm3 (0.1-0.6); Monocytes Percent Auto 5.4 % (2.6-8.5); Neutrophils Absolute Auto 4.6 K/mm3 (1.3-6.7); Neutrophils Percent Auto 60.6 % (45.5-73.1); Platelet Count Result 257 k/mm3 (150-375); Red Blood Count 4.12 M/mm3 (4.2-5.4); Red Cell Distribution Width 12.5 % (11.5-14.5); White Blood Count 7.6 K/mm3 (4.5-10.0)
[2020-09-29 14:32] LABS: Alanine Aminotransferase 655 U/L (4-35); Albumin Level 4.3 g/dL (3.5-5.1); Alkaline Phosphatase 344 U/L (38-126); Anion Gap 8 mmol/L (8-16); Aspartate Amino Transferase 197 U/L (14-36); Bilirubin,Total 0.9 mg/dL (0.2-1.3); Blood Urea Nitrogen 7 mg/dL (7-17); Calcium 9.7 mg/dL (8.4-10.2); Carbon Dioxide 29 mmol/L (22-30); Chloride 103 mmol/L (98-107); Estimated Glomerular Filt Rate > 60; Glucose 95 mg/dL (65-105); Lipase 117 U/L (23-300); Potassium 3.9 mmol/L (3.4-5.0); Sodium 140 mmol/L (137-145)
== END 2020-09-29 13:46 | disposition home or self-care (01) ==
PROVIDERS: PCP Family Medicine Sports Medicine; Visit Provider Surgery
DX: R10.11 Right upper quadrant pain (principal); Z90.49 Acquired absence of other specified parts of digestive tract; K80.20 Calculus of gallbladder without cholecystitis without obstruction
CPT/HCPCS: 36415; 74183; 76376; 80053; 83690; 85025; A9577

== ENCOUNTER 2022-03-12 17:48 | Emergency (ER) | payer OTHER, SELFPAY ==
[2022-03-12 17:52] VITALS: BP 137/101; PULSE 95; RESP 18; TEMP 36.4; O2SAT 100
--- NOTE | 2022-03-12 18:11 | ED.GENADULT ---
HPI - General Adult General Chief complaint: Allergic Reaction Stated complaint: episode of throat swelling Time Seen by Provider: 03/12/22 18:11 Source: patient Mode of arrival: ambulatory Limitations: no limitations History of Present Illness HPI narrative: 36-year-old female presented for complaint of 1 episode of throat swelling that occurred around 1500 today. She states she had been moving furniture, and stated she wanted to drink water but water. She states she was concerned she was having an allergic reaction so she took a Benadryl tablet, which ultimately got lodged in her throat. Her gave back thrusts and allowed the pill to dislodge. Then she took liquid Benadryl for symptoms. She denies shortness of breath, wheezing, lip/tongue swelling, nausea, vomiting, fevers or chills. She denies changes to food, medication or any other allergies. She denies similar symptoms in the past. Related Data Allergies Allergy/AdvReac Type Severity Reaction Status Date / Time clarithromycin Allergy Unknown Unknown Verified 10/07/20 08:28 Review of Systems Review of Systems: CONSTITUTIONAL: Denies body aches, fever, chills, or sweats. EYES: Denies visual changes, redness, or discharge. ENT: Denies rhinorrhea, congestion, sore throat, or otalgia. CARDIOVASCULAR: Denies chest pain, palpitations, or edema. RESPIRATORY: Denies cough or dyspnea. GASTROINTESTINAL: Denies abdominal pain, nausea, vomiting, or diarrhea. SKIN: Denies rash, itching, or wounds. All systems reviewed & are unremarkable except as noted in HPI and below PMFSH Past Medical History Medical History Aneurysm Biliary colic BMI 33.0-33.9,adult Intractable abdominal pain Kawasaki disease Pyoderma gangrenosum Surgical History Surgical History S/P laparoscopic cholecystectomy [place] teeth extracted Family History Family History Mother Diabetes mellitus Acute myocardial infarction Thrombus Gallbladder disease Father Diabetes mellitus Hypertension Gallbladder disease Grandparent Gallbladder disease Grandparent Gallbladder disease Social History Social History Alcohol intake: current Drinks per week: 2 Substance use: never Substance use type: does not use Additional occupation/education comments: Pharmacist Gender identity (if verbalized by the patient): Female Spiritual care concerns: No Comments At time of signature, I have reviewed and agree with nursing past medical, surgical, social and family history unless otherwise noted. Please see nursing chart for further information. There is no relevant family history pertinent to the presenting complaint Exam Narrative: GENERAL: Well-appearing, well-nourished, and in no acute distress. HEAD: Normocephalic, atraumatic. EYES: EOMI. No redness or drainage. Conjunctivae normal. ENT: Mucous membranes pink and moist. No rhinorrhea. TMs normal bilaterally. Throat normal. Airway patent. Uvula midline. NECK: Normal AROM. Supple. No lymphadenopathy. CHEST: No respiratory distress. Clear to auscultation. HEART: Regular rate and rhythm. No murmur appreciated. Normal peripheral pulses. SKIN: Warm, dry, no rash. Capillary refill normal. Normal skin turgor. PSYCH: Normal affect. Course Course Emergency Course: Patient is aware of diagnosis, understands and agrees to treatment plan. Anticipatory guidance given. Patient agrees to follow-up as directed and is aware of reasons to seek care at the emergency department. Portions of this record may have been created with voice recognition software Level of Care: Express Care Visit Vital Signs Vital signs: Vital Signs Temperature 97.6 F 03/12/22 17:52 Pulse Rate 95 03/12/22 17:52 Respira
== END 2022-03-12 18:25 | disposition home or self-care (01) ==
PROVIDERS: Emergency Provider Nurse Practitioner Family
DX: T78.40XA Allergy, unspecified, initial encounter (principal)
CPT/HCPCS: 99213; G0463

== ENCOUNTER 2025-03-05 08:39 | Outpatient (CLI) | payer OTHER, SELFPAY ==
--- NOTE | ~2025-03-05 | MM_ITS ---
PROCEDURE: MM SCREENING YULIET BI W RIGOBERTO INDICATION: Asymptomatic, referred for screening mammogram COMPARISON: Baseline TECHNIQUE: Digital breast tomosynthesis craniocaudal and mediolateral oblique views of Both breasts w ere obtained with computer-aided detection to assist in interpretation of the study. FINDINGS: The breasts are heterogeneously dense, which may obscure small masses. No focal dominant mass, architectural distortion, or suspicious microcalcifications are identified. There are no features to suggest malignancy. IMPRESSION: No evidence of malignancy in the breast. Recommend continued screening mammography BI-RADS 1, NEGATIVE Reviewed, dictated and finalized at location B.
--- OUTSIDE RECORDS SUMMARY | 2025-03-05 08:44 | XMS_ITS | Referral Summary ---
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 02/28/2023 Closed nondisplaced fracture of head of radius with routine healing 06/12/2019 Closed nondisplaced fracture of head of right ra dius 05/01/2019 Social History Tobacco Use Types Packs/Day Years Used Date Smoking Tobacco: Never Smokeless Tobacco: Never Tobacco Cessation:Counseling Given: Yes Alcohol Use Standard Drinks/Week Comments Never 0 (1 standard drink = 0.6 oz pur e alcohol) AUDIT-C Answer Date Recorded Frequency of Alcohol Consumption Never 05/01/2019 Average Number of Drinks Not on file 019 Frequency of Binge Drinking Not on file 04/04 Personal Safety Answer Date Recorded Getting School Help Needed Not on file 04/07 Comments Unknown Sex and Gender Information Value Date Recorded Sex Assigned at Not on file 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 Gender Identity Not on file Sexual Orientation Not on file Last Filed Vital Signs Vital Sign Reading Time Taken Comments Blood Pressure 110/70 06/05/2023 6:32 PM CDT Pulse 62 06/05/2023 6:32 PM CDT Temperature 37 C (98.6 F) 06/05/2023 6:32 PM CDT Respiratory Rate 20 06/05/2023 6:32 PM CDT Oxygen Saturation 99% 06/05/2023 6:32 PM CDT Inhaled Oxygen Concentration - - Weight 90.7 kg (200 lb) 06/05/2023 6:32 PM CDT Height 157.5 cm (5' 2) 07/10/2019 10:56 AM CDT Body Mass Index 36.58 07/10/2019 10:56 AM CDT Plan of Treatment Not on file Insurance CHOICE PLUS [place] [id number] CHOICE PLUS Care Teams Repacker Relationship Specialty Start Date End Date Juan Hagan MD [address] [place] [address] PCP - General Family Medicine 05/01/19
--- OUTSIDE RECORDS SUMMARY | 2025-03-05 08:44 | XMS_ITS | Clinical Summary ---
Author Organization [facility] Address [address] [place] [address] Care Team Providers Care Laryngologist Name Role Phone Juan Hagan MD Primary Care Provider [phone] Allergies Active Allergy Reactions Criticality Noted Date [...] of head of right ra dius 05/01/2019 Surgical History Surgery Date Site/Laterality Comments WISDOM TOOTH EXTRACTION Medical History Medical History Date Comments Pyoderma gangrenosum (HCC) Kawasaki disease (HCC) Family History Medical History Relation Name Comments Diabetes Other Hypertension Other Relation Name Status Comments Other Social History Tobacco Use Types Packs/Day Years [...] on file 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 Gender Identity Not on file Sexual Orientation Not on file Obstetrics History Last Filed Vital Signs Vital Sign Reading [...] 07/10/2019 10:56 AM CDT Plan of Treatment Health Maintenance Due Date Last Done Comments Breast Cancer Screening-Mammogram 1983 Cervical Cancer Screening 1983 Depression Screening 1983 Hepatitis C Screening 1983 Varicella Vaccines (1 of 2 - 13+ 2-dose series) 1996 Hepatitis B Screening 2001 Regular Well Visit/Exam 18-64 2001 DTaP/Tdap/Td Vaccine (2 - Td or Tdap) 05/27/2024 05/27/2014 Influenza Vaccine (Season Ended) 2025 07/23/2018, 07/27/2017, 07/08/2016, Additional history exists HPV Vaccines Aged Out No longer eligi ble based on patient's age to complete this topic Pneumococcal vaccine <65 Aged Out No longer eligible based on patient's age to complete this topic Insurance [facility] CHOICE PLUS [facility] CHOICE PLUS Care Teams Laryngologist Relationship Specialty Start Date End Date Juan Hagan MD [address] [place] [address] PCP - General Family Medicine 05/01/19
--- OUTSIDE RECORDS SUMMARY | 2025-03-05 08:44 | XMS_ITS | Clinical Summary ---
Author Organization [facility] [facility] Address [address] [place] [address] Care Team Providers Care Environmental Tech Name Role Phone Unavailable Primary Care Provider Unavailabl e Source Comments [facility] [facility]non-owned Affiliates and Associated Physician Practices is amultiple site organization consisting of ambulatory clinics and hospital sitesin [place], [place], [place] and [place]. This disclosure is being madepursuant to the Care Everywhere program and may not contain all information available regarding this patient. Last updated [email or web address] [facility] [facility] Allergies Active Allergy Reactions Criticality Noted Date Comments Clarithromycin Urticaria Medium 11/18/2017 Medications * Be aware that medications may not be up to date on this document. Alwaysverify current medications with the patient. No known medications Social History Tobacco Use Types Packs/Day Years Used Date Smoking Tobacco: Never Comments Unknown Sex and Gender Information Value Date Recorded Sex Assigned at Not on file Legal Sex Female 2:49 AM LINEN ROOM ATTENDANT Gender Identity Not on file Sexual Orientation Not on file Last Filed Vital Signs Vital Sign Reading Time Taken Comments Blood Pressure 114/72 11/18/2017 7:41 AM LINEN ROOM ATTENDANT Pulse 90 11/18/2017 7:41 AM LINEN ROOM ATTENDANT Temperature 37.1 C (98.8 F) 11/18/2017 7:41 AM LINEN ROOM ATTENDANT Respiratory Rate - - Oxygen Saturation - - Inhaled Oxygen Concentration - - Weight 90.7 kg (200 lb) 11/18/2017 7:41 AM LINEN ROOM ATTENDANT Height 154.9 cm (5' 1) 11/18/2017 7:41 AM LINEN ROOM ATTENDANT Body Mass Index 37.79 11/18/2017 7:41 AM LINEN ROOM ATTENDANT Plan of Treatment Health Maintenance Due Date Last Done Comments LIPID TESTING 1983 MAMMOGRAM 1983 HIV SCREENING 1998 HEPATITIS C SCREENING 10/15/2001 DTAP/TDAP/TD VACCINES (1 - Tdap) 2002 HEPATITIS B VACCINE (1 of 3 - 19+ 3-dose series) 2002 COVID-19 VACCINE (1 - 2023-2 5 season) 2024 DEPRESSION SCREENING 10/03/2024 INFLUENZA VACCINE (Season Ended) 2025 ZOSTER VACCINE (1 of 2) 2033 HIB VACCINE Aged Out No longer eligi ble based on patient's age to complete this topic HPV VACCINE Aged Out No longer eligi ble based on patient's age to complete this topic MENINGOCOCCAL (Group B) VACC INE SHARED DECISION-MAKING Aged Out No longer eligibl e based on patient's age to complete this topic MENINGOCOCCAL GROUPS A/C/Y/W VACCINE Aged Out No longer eligible b ased on patient's age to complete this topic PNEUMOCOCCAL VACCINE Aged Out No long er eligible based on patient's age to complete this topic Insurance
== END 2025-03-05 08:40 | disposition home or self-care (01) ==
PROVIDERS: PCP Nurse Practitioner; Visit Provider Nurse Practitioner
DX: Z12.31 Encounter for screening mammogram for malignant neoplasm of breast (principal)
CPT/HCPCS: 77063; 77067